=== PATIENT | male | born 1950 | race African-American/Black ===

== ENCOUNTER 2019-01-15 02:53 | Observation (INO) | payer MEDICARE, MEDICAID ==
[~2019-01-15] VITALS: Ht 172.7 cm; Wt 68.2 kg
[2019-01-15] VITALS (7 sets, daily range): BP systolic 126–147; BP diastolic 51–67
[2019-01-15 04:13] LABS: BASOPHILS % (AUTO) 0.6 % (0-1); EOSINOPHILS # (AUTO) 0.1 X10'3 (0-0.9); EOSINOPHILS % (AUTO) 2.3 % (0-6); HEMATOCRIT 40.2 % (42.0-52.0); HEMOGLOBIN 13.3 g/dl (14.0-17.9); LYMPHOCYTES % (AUTO) 25.4 % (21-51); MEAN CORPUSCULAR HEMOGLOBIN 28.5 PG (27.0-31.0); MEAN CORPUSCULAR VOLUME 86.2 FL (78-98); MEAN PLATELET VOLUME 8.7 FL (7.4-10.4); MONOCYTES # (AUTO) 0.4 X10'3 (0-0.9); MONOCYTES % (AUTO) 9.3 % (2-12); NEUTROPHILS # (AUTO) 2.5 X10'3 (1.8-7.7); NEUTROPHILS % (AUTO) 62.4 % (42-75); PLATELET COUNT 195 X10'3 (140-440); RED BLOOD COUNT 4.66 X10'6 (4.70-6.10); RED CELL DISTRIBUTION WIDTH 15.9 % (11.5-14.5); WHITE BLOOD COUNT 4.1 X10'3 (4.5-11.0)
[2019-01-15 04:17] LABS: ALANINE AMINOTRANSFERASE 16 U/L (12-78); ALBUMIN 3.6 G/DL (3.4-5.0); ALBUMIN/GLOBULIN RATIO 1.2 (1.1-1.5); ALKALINE PHOSPHATASE 67 IU/L (46-116); ANION GAP 5 (8-16); ASPARTATE AMINO TRANSFERASE 11 U/L (10-37); BILIRUBIN,TOTAL 0.3 MG/DL (0.1-1.0); BLOOD UREA NITROGEN 9 MG/DL (7-18); BUN/CREATININE RATIO 8.9 (5.4-32.0); CALCIUM 8.9 MG/DL (8.5-10.1); CHLORIDE 109 MMOL/L (99-107); CREATININE 1.01 MG/DL (0.60-1.10); GLUCOSE 83 MG/DL (70-104); POTASSIUM 3.5 MMOL/L (3.5-5.1); SODIUM 144 MMOL/L (135-145); TOTAL CARBON DIOXIDE 29.6 MMOL/L (24-32); TOTAL PROTEIN 6.6 G/DL (6.4-8.2); eGFR 74 ML/MIN
[2019-01-15 04:21] LABS: PARTIAL THROMBOPLASTIN TIME 28 SECONDS (22-32)
[2019-01-15] MEDS ORDERED: ASPI-1264 PO (05:04)
[2019-01-15] MEDS ORDERED: LEVE250T4 PO (05:04)
[2019-01-15] MEDS ORDERED: FLO0.4C PO (05:04)
[2019-01-15] MEDS ORDERED: NITR0.4T48 SL (05:04)
--- NOTE | 2019-01-15 05:04 | NUR ---
ATTEMPTED TO COMPLETE MED REC.
[2019-01-15] MEDS ORDERED: nitroGLYCERIN 0.4mg SUBLingual tab SL PRN ×2 (05:05→12:00)
[2019-01-15] MEDS ORDERED: aspirin 81mg tab.chew PO ONE (05:05)
--- NOTE | 2019-01-15 05:09 | NUR ---
PT RECEIVED ASA BY EMS. AWARE MED NON-ADMIN.
--- NOTE | 2019-01-15 05:45 | NUR ---
PT SLEEPING IN BED , APPEARS IN NO DISTRESS.
[2019-01-15] MEDS ORDERED: ondansetron/PF 4mg/2ml inj IV PRN (06:00)
[2019-01-15] MEDS ORDERED: acetaminophen 325mg tablet PO PRN (06:00)
[2019-01-15] MEDS ORDERED: potassium CL 10mEq/100ml bag 100 ML IV PRN ×2 (06:00)
[2019-01-15] MEDS ORDERED: magnesium Cl slow-release 64mg tablet PO PRN (06:00)
[2019-01-15] MEDS ORDERED: magnesium 4gm in 100ml NS 100 ML IV PRN (06:00)
[2019-01-15] MEDS ORDERED: magnesium 2GM in 50ml NS 50 ML IV PRN (06:00)
[2019-01-15] MEDS ORDERED: mag hydrox/Alum hydrox/simeth 30ml oral suspension PO PRN (06:00)
[2019-01-15] MEDS ORDERED: potassium Cl 20 mEq SR tablet PO PRN ×2 (06:00)
[2019-01-15] MEDS ORDERED: K and/or MAG REPLACEMENT MC SCH (08:00)
[2019-01-15 08:30] LABS: HEMOGLOBIN A1C 5.7 % (4.5-6.2)
[2019-01-15] MEDS ORDERED: regadenoson 0.4mg/5ml syringe IV PRN (10:30)
[2019-01-15] MEDS ORDERED: aminophylline 250mg/10ml inj. IV PRN (10:30)
[2019-01-15] MEDS ORDERED: levetiracetam 250mg tablet PO ONE (12:00)
[2019-01-15] MEDS ORDERED: levetiracetam 250mg tablet PO SCH (20:00)
[2019-01-16] MEDS ORDERED: aspirin 325mg tablet PO SCH (08:00)
[2019-01-16] MEDS ORDERED: tamsulosin 0.4mg capsule PO SCH (08:00)
== END 2019-01-15 14:45 | disposition home or self-care (01) ==
LOC: ER 02:53 → SUR 3N 09:05
PROVIDERS: ADMIT Internal Medicine; ATTEND Internal Medicine
DX: R07.89 Other chest pain (principal); E78.5 Hyperlipidemia, unspecified; I10 Essential (primary) hypertension; I25.10 Atherosclerotic heart disease of native coronary artery without angina pectoris; F17.210 Nicotine dependence, cigarettes, uncomplicated; Z85.46 Personal history of malignant neoplasm of prostate; Z79.82 Long term (current) use of aspirin; Z88.0 Allergy status to penicillin
CPT/HCPCS: 36415; 71045; 78452; 80053; 83036; 83880; 84484; 85025; 85610; 85730; 87081; 93005; 99284; A9500; G0378; J2785

== ENCOUNTER 2020-10-25 19:39 | Emergency (ER) | payer MEDICARE, MEDICAID ==
[~2020-10-25] VITALS: Ht 172.7 cm; Wt 75.0 kg
[~2020-10-25 19:39] MED LIST: ASPI-1264 PO; FLO0.4C PO; LEVE250T4 PO; NITR0.4T48 SL
[2020-10-25 20:35] LABS: BASOPHILS % (AUTO) 0.6 % (0-1); EOSINOPHILS # (AUTO) 0.2 X10'3 (0-0.9); EOSINOPHILS % (AUTO) 3.6 % (0-6); HEMATOCRIT 39.2 % (42.0-52.0); HEMOGLOBIN 12.9 g/dl (14.0-17.9); LYMPHOCYTES # (AUTO) 0.9 X10'3 (1.1-4.8); LYMPHOCYTES % (AUTO) 17.8 % (21-51); MEAN CORPUSCULAR HEMOGLOBIN 27.8 PG (27.0-31.0); MEAN CORPUSCULAR HGB CONC 32.8 g/dL (33.0-36.5); MEAN CORPUSCULAR VOLUME 84.6 FL (78-98); MEAN PLATELET VOLUME 8.8 FL (7.4-10.4); MONOCYTES # (AUTO) 0.4 X10'3 (0-0.9); MONOCYTES % (AUTO) 7.5 % (2-12); NEUTROPHILS # (AUTO) 3.7 X10'3 (1.8-7.7); NEUTROPHILS % (AUTO) 70.5 % (42-75); PLATELET COUNT 254 X10'3 (140-440); RED BLOOD COUNT 4.63 X10'6 (4.70-6.10); RED CELL DISTRIBUTION WIDTH 16.8 % (11.5-14.5); WHITE BLOOD COUNT 5.3 X10'3 (4.5-11.0)
[2020-10-25 20:50] LABS: ALANINE AMINOTRANSFERASE 17 U/L (12-78); ALBUMIN 3.9 G/DL (3.4-5.0); ALBUMIN/GLOBULIN RATIO 1.1 (1.1-1.5); ALKALINE PHOSPHATASE 72 IU/L (46-116); ANION GAP 10 (8-16); ASPARTATE AMINO TRANSFERASE 17 U/L (10-37); BILIRUBIN,TOTAL 0.5 MG/DL (0.1-1.0); BLOOD UREA NITROGEN 9 MG/DL (7-18); CHLORIDE 105 MMOL/L (99-107); CREATININE 1.13 MG/DL (0.60-1.10); GLUCOSE 91 MG/DL (70-104); POTASSIUM 3.7 MMOL/L (3.5-5.1); SODIUM 142 MMOL/L (135-145); TOTAL CARBON DIOXIDE 27.4 MMOL/L (24-32); TOTAL PROTEIN 7.3 G/DL (6.4-8.2); eGFR 78 ML/MIN
[2020-10-25] MEDS ORDERED: nitroGLYCERIN 0.4mg SUBLingual tab SL PRN (21:15)
[2020-10-25] MEDS ORDERED: NITR0.4T51 SL (22:05)
[2020-10-25 22:26] VITALS: BP 134/72
== END 2020-10-25 22:28 | disposition home or self-care (01) ==
LOC: ER 19:40
DX: R07.89 Other chest pain (principal); Z98.890 Other specified postprocedural states; Z72.89 Other problems related to lifestyle; Z60.2 Problems related to living alone; Z56.0 Unemployment, unspecified; Z88.0 Allergy status to penicillin; Z88.1 Allergy status to other antibiotic agents; Z79.82 Long term (current) use of aspirin; Z79.899 Other long term (current) drug therapy
CPT/HCPCS: 36415; 71045; 80053; 83880; 84484; 85025; 93005; 99285

== ENCOUNTER 2020-10-30 16:28 | Emergency (ER) | payer OTHER, MEDICARE, MEDICAID ==
[~2020-10-30] VITALS: Ht 180.3 cm; Wt 63.6 kg
[~2020-10-30 16:28] MED LIST changes: +NITR0.4T51 SL
[2020-10-30 16:34] VITALS: BP 156/75
[2020-10-30] MEDS ORDERED: ketorolac trometh. 30mg/ml inj. IM ONE (17:35)
== END 2020-10-30 17:51 | disposition home or self-care (01) ==
LOC: ER 16:29
DX: Z02.89 Encounter for other administrative examinations (principal); R52 Pain, unspecified; Z56.0 Unemployment, unspecified; Z60.2 Problems related to living alone; Z72.89 Other problems related to lifestyle; Z88.0 Allergy status to penicillin; Z88.1 Allergy status to other antibiotic agents; Z79.82 Long term (current) use of aspirin; Z79.899 Other long term (current) drug therapy
CPT/HCPCS: 96372; 99284; J1885

== ENCOUNTER 2022-09-08 08:15 | Emergency (ER) | payer OTHER, MEDICARE, MEDICAID ==
[~2022-09-08] VITALS: Ht 180.3 cm; Wt 63.6 kg
[~2022-09-08 08:15] MED LIST changes: -NITR0.4T51 SL
[2022-09-08 08:27] VITALS: BP 136/68
[2022-09-08] MEDS ORDERED: IBUP-860 PO (09:33)
[2022-09-08] MEDS ORDERED: ibuprofen tablet 400 MG TABLET PO ONE (09:35)
== END 2022-09-08 09:47 | disposition home or self-care (01) ==
LOC: ER 08:15
DX: M79.10 Myalgia, unspecified site (principal); I10 Essential (primary) hypertension; Z88.1 Allergy status to other antibiotic agents; Z88.0 Allergy status to penicillin; Z79.899 Other long term (current) drug therapy; Z79.82 Long term (current) use of aspirin; Z79.1 Long term (current) use of non-steroidal anti-inflammatories (NSAID); V98.8XXA Other specified transport accidents, initial encounter; Y93.89 Activity, other specified; Y92.89 Other specified places as the place of occurrence of the external cause; Y99.8 Other external cause status
CPT/HCPCS: 99284